=== PATIENT | female | born 1980 | race Two or more races ===

== ENCOUNTER 2025-06-23 12:43 | Outpatient (CLI) | payer MEDICARE, MEDICAID ==
[~2025-06-23 12:43] MED LIST: CEFA-122 PO; CEPH500C PO; METO10TA3 PO; PROM25TA10 OR; RANI300C7 PO; [UNRECOGNIZED DRUG - CODE] PO
[2025-06-24 21:07] LABS: Chlamydia Trachomatis, NAA Negative (Negative); Neisseria gonorrhoeae, NAA Negative (Negative)
== END 2025-06-23 17:00 | disposition home or self-care (01) ==
LOC: LAB 12:43
DX: N94.11 Superficial (introital) dyspareunia (principal); Z11.3 Encounter for screening for infections with a predominantly sexual mode of transmission; Z72.51 High risk heterosexual behavior; Z11.4 Encounter for screening for human immunodeficiency virus [HIV]; Z79.899 Other long term (current) drug therapy
CPT/HCPCS: 36415; 86695; 86696; 86703; 86780; 87086; 87340; 87902

== ENCOUNTER 2025-07-08 11:42 | Outpatient (CLI) | payer MEDICARE, MEDICAID ==
[2025-07-08 12:08] LABS: Hematocrit 40.0 % (36.0-46.0); Hemoglobin 13.5 g/dL (12.2-16.2); Mean Corpuscular Hemoglobin 31.2 pg (28.0-32.0); Mean Corpuscular Volume 92.7 fL (80.0-100.0); Nucleated Red Blood Cells % 0.1 %
[2025-07-08 12:26] LABS: Albumin 4.4 g/dL (3.2-4.8); Anion Gap 7 (5-15); BUN/Creatinine Ratio 10.4 (10.0-20.0); Bilirubin, Total 1.0 mg/dL (0.2-1.0); Calcium 9.2 mg/dL (8.7-10.4); Carbon Dioxide 27 mmol/L (20-31); Glucose 87 mg/dL (74-106); Potassium 4.3 mmol/L (3.5-5.1); Sodium 142 mmol/L (136-145); Total Protein 7.2 g/dL (5.7-8.2)
[2025-07-08 12:27] LABS: Alanine Aminotransferase < 9 U/L (7-40); Alkaline Phosphatase 42 U/L (46-116); Blood Urea Nitrogen 8 mg/dL (9-23); Chloride 108 mmol/L (98-107)
[2025-07-08 12:29] LABS: Follicle Stimulating Hormone 5.57 IU/L (SEE BELOW)
== END 2025-07-08 17:00 | disposition home or self-care (01) ==
LOC: LAB 11:42
DX: E28.2 Polycystic ovarian syndrome (principal); R89.1 Abnormal level of hormones in specimens from other organs, systems and tissues; Z13.29 Encounter for screening for other suspected endocrine disorder; Z01.419 Encounter for gynecological examination (general) (routine) without abnormal findings; N95.2 Postmenopausal atrophic vaginitis
CPT/HCPCS: 36415; 80053; 82626; 82670; 83001; 83002; 83036; 83525; 84146; 84402; 84403; 84443; 85025